=== PATIENT | male | born 1995 | race Caucasian/White ===

== ENCOUNTER 2021-01-08 22:53 | Inpatient (IN) | payer OTHER, SELFPAY ==
[~2021-01-08] VITALS: Ht 182.9 cm; Wt 80.8 kg
--- NOTE | 2021-01-08 23:56 | NUR ---
ARRIVAL: PT ARRIVED TO ICU 8 VIA EMS. REPORT RECEIVED FROM [facility]. PT TRANSFERRED TO ICU BED X4 ASSIST. PT IS ON NC @ 3.5LPM. ALL VSS AND WNL. PT IS ALERT AND ORIENTED. COVID ISOLATION PRECAUTIONS EXPLAINED TO PT WITH UNDERSTANDING. CALL LIGHT AND TABLE WITHIN REACH. BED LOCKED AND IN LOW POSITION, WITH SIDE RAILS UP X2. PT DENIES ANY NEEDS. WILL CONTINUE TO MONITOR.
[2021-01-09] VITALS (71 sets, daily range): BP systolic 106–164; BP diastolic 54–100
--- NOTE | 2021-01-09 00:37 | PCM.HP ---
History of Present Illness Hx of Present Illness 25-year-old male with no significant past medical history who has had coronavirus for approximately 12 days now was treated with a course of doxycycline outpatient and steroids however his oxygen saturations have worsened today and he is now requiring oxygen he did not get vaccinated Review of Systems Constitutional: Fever, Chills Eyes: No: Pain, Vision change, Conjunctivae inflammation, Eyelid inflammation, Other, Redness ENT: No: Ear pain, Ear discharge, Nose pain, Nose discharge, Nose congestion, Mouth pain, Mouth swelling, Throat pain, Throat swelling, Other Respiratory: Cough Cardiovascular: No: Chest Pain, Palpitations, Orthopnea, Paroxysmal Noc. Dyspnea, Edema, Lt Headedness, Other Gastrointestinal: No: Nausea, Vomiting, Abdominal Pain, Diarrhea, Constipation, Melena, Hematochezia, Other Genitourinary: No Dysuria, No Frequency, No Incontinence, No Hematuria, No Retention, No Other Musculoskeletal: No: other, neck pain, shoulder pain, arm pain, back pain, hand pain, leg pain, foot pain Skin: No: Rash, Lesions, Jaundice, Bruising, Other Neurological: No: Weakness, Numbness, Incoordination, Change in speech, Confusion, Seizures, Other Allergies: Coded Allergies: azithromycin (Verified Allergy, Unknown, 01/09/21) codeine (Verified Allergy, Unknown, 01/09/21) moxifloxacin (Verified Allergy, Unknown, 01/09/21) VTE VTE Risk Score VTE Risk: Score 0-1 = Low Risk (Aggressive mobilization; early ambulation; no VTE prophylaxis required) Score 2: Moderate Risk (Intermittent/Pneumatic Compression Device OR Lovenox/Heparin/Coumadin) Score 3-4: High Risk (Intermittent/Pneumatic Compression Device AND Lovenox/Heparin/Coumadin) Score > or =5: Highest Risk (Intermittent/Pneumatic Compression Device AND Lovenox/Heparin/Coumadin) Antico:Hep/LMWH/Coum/Xarelto: Yes Mechanical device ordered: Yes Exam General Appearance: Alert, Oriented X3, Cooperative HEENT: Atraumatic, PERRLA, EOMI, Mucous membr. moist/pink Respiratory: Clear to auscultation, Normal air movement Cardiovascular: Regular rate Abdominal: Normal bowel sounds Extremities: No clubbing, No cyanosis Skin: No rash, No breakdown Neuro: Normal gait, Normal speech, Strength at 5/5 X4 ext, Normal tone Psych/Mental Status: Mood NL Assessment/Plan Assessment/Plan Assessment/Plan 25-year-old male with COVID-19 infection now requiring oxygen was treated outpatient with doxycycline and steroids but developed worsening symptoms and presented to the ER yesterday has not vaccinated. Was found to have a elevated D-dimer but negative CT angiogram of the chest with symptoms consistent with Covid infection transferred from [facility] for higher level of care COVID-19 pneumonia: Completed course of antibiotics outpatient, will treat with remdesivir, dexamethasone, incentive spirometry, zinc, melatonin, Pepcid and oxygen as needed. Overall patient has a good prognosis given age and lack of risk factors overall we will anticoagulate with enoxaparin due to elevated D-dimer Prophylaxis: Pepcid, SCDs, enoxaparin Patient is full code JACLYN AVINA MD Jan 09, 2021 00:36
[2021-01-09] MEDS ORDERED: REMDESIVIR (EUA) 200 MG in NS 100ML 100 ML IV STA (00:44)
[2021-01-09] MEDS: PEPCID IV SCH ×3 (01:00→22:00)
[2021-01-09] MEDS ORDERED: TESSALON PERLE PO PRN (01:00)
[2021-01-09] MEDS ORDERED: TYLENOL PO PRN (01:00)
[2021-01-09] MEDS ORDERED: ZOFRAN IV PRN (01:00)
[2021-01-09] MEDS ORDERED: MELATONIN PO PRN (01:00)
[2021-01-09] MEDS: ROCEPHIN 1,000 MG in NS 100ML 100 ML IV SCH (01:00)
[2021-01-09] MEDS ORDERED: PEPCID ONE (01:05)
[2021-01-09] MEDS ORDERED: ROCEPHIN ONE (01:05)
[2021-01-09] MEDS ORDERED: NS 100ML 100 ML IV ONE (01:06)
[2021-01-09] MEDS ORDERED: NS 500ML 500 ML IV ONE (01:09)
[2021-01-09 05:14] LABS: BASOPHIL % 0.5 % (0.0-0.2); EOSINOPHIL % 0.2 % (0.0-5.0); LYMPHOCYTES # 0.53 10^3/uL1 (1.0-4.8); MEAN CORP HGB 29.2 pg (26-34); MONOCYTES # 0.2 10^3/uL (0.3-0.8); MONOCYTES % 5.4 % (5.0-12.0); NEUTROPHIL # 3.6 10^3/uL (1.8-7.7); NEUTROPHILS % 81.9 % (41.0-85.0); PLATELET COUNT 188 10^3/uL (150-400)
[2021-01-09 05:43] LABS: CALCIUM 7.7 mg/dL (8.4-10.5); CARBON DIOXIDE 25.5 mmol/L (20.0-32)
--- NOTE | 2021-01-09 06:30 | NUR ---
COVID TEST WAS DONE IN [place] PER PT REPORT. "I DON'T KNOW WHERE".
--- NOTE | 2021-01-09 06:50 | NUR ---
REPORT TO ONCOMING SHIFT. PT CARE RELINQUISHED.
[2021-01-09] MEDS: ZINC SULFATE PO SCH (09:00)
[2021-01-09] MEDS: LOVENOX SQ SCH ×2 (09:00→22:00)
[2021-01-09] MEDS: VITAMIN C PO SCH ×2 (09:00→22:00)
--- NOTE | 2021-01-09 20:25 | NUR ---
TRANSFER PT WAS MOVED TO [facility] #[id number]. VITALS PRIOR TO TRANSFER: HR 93, BP 124/73, O2 93% AND RR 8-12. PT TRANSFERRED VIA WHEEL CHAIR, A&OX3. REPORT GIVEN TO BERNADETTE ROQUE. RELINQUISHED CARE OF PT AT THIS TIME.
--- NOTE | 2021-01-09 20:51 | DIREP ---
PROCEDURE:CHEST 1 VIEW COMPARISON:[facility], CT, CTA PE CHEST W/O PELVIS- LEGS, 01/08/2021, 09:23 PM. [facility], CR, XRAY CHEST SINGLE VW, 01/08/2021, 08:26 PM. INDICATIONS:Pneumonia FINDINGS: LUNGS/PLEURA:Shallow inspiratory excursion. Given differences in technique, the multifocal bilateral infiltrates appear unchanged VASCULATURE:Normal. Unremarkable pulmonary vasculature. CARDIAC:Normal. No cardiac silhouette abnormality or cardiomegaly. MEDIASTINUM:Normal. No visible mass or adenopathy. BONES:Normal. No fracture or visible bony lesion. OTHER:Negative. CONCLUSION:Stable bilateral pneumonia Dictated by: Dori Cuevas M.D. on 01/09/2021 at 08:46 PM
[2021-01-09] MEDS: REMDESIVIR (EUA) 100 MG in NS 100ML 100 ML IV SCH (22:00)
--- NOTE | 2021-01-09 22:00 | NUR ---
PT REFUSED BATH DUE TO THIS NURSES CONCERNS WITH PT HYGIENE, OFFERED PT BED BATH OR SHOWER, PT REFUSED..
[2021-01-09] MEDS ORDERED: NS 250ML 250 ML ONE (22:56)
[2021-01-10 00:58] VITALS: BP 122/77
[2021-01-10] MEDS: ROCEPHIN 1,000 MG in NS 100ML 100 ML IV SCH (01:13)
[2021-01-10 04:25] VITALS: BP 118/78
[2021-01-10] MEDS: VITAMIN C PO SCH ×2 (08:57→20:16)
[2021-01-10] MEDS: ZINC SULFATE PO SCH (08:58)
[2021-01-10] MEDS: PEPCID IV SCH ×2 (08:58→20:15)
[2021-01-10] MEDS: LOVENOX SQ SCH ×2 (08:58→20:16)
[2021-01-10 10:05] VITALS: BP 137/99
--- NOTE | 2021-01-10 12:23 | PRM.PN ---
Subjective Subjective Date: Jan 10, 2021 Time: 12:23 Subjective Patient feels about the same today as yesterday he is using his incentive spirometer VTE VTE Risk Total Score: 5 VTE Risk Score VTE Risk: Score 0-1 = Low Risk (Aggressive mobilization; early ambulation; no VTE prophylaxis required) Score 2: Moderate Risk (Intermittent/Pneumatic Compression Device OR Lovenox/Heparin/Coumadin) Score 3-4: High Risk (Intermittent/Pneumatic Compression Device AND Lovenox/Heparin/Coumadin) Score > or =5: Highest Risk (Intermittent/Pneumatic Compression Device AND Lovenox/Heparin/Coumadin) Antico:Hep/LMWH/Coum/Xarelto: Yes Mechanical device ordered: Yes Review of Systems Constitutional: Fever, Chills Eyes: No: Pain, Vision change, Conjunctivae inflammation, Eyelid inflammation, Other, Redness ENT: No: Ear pain, Ear discharge, Nose pain, Nose discharge, Nose congestion, Mouth pain, Mouth swelling, Throat pain, Throat swelling, Other Respiratory: Cough, Shortness of breath, SOB with excertion; No: Wheezing Cardiovascular: No: Chest Pain, Palpitations, Orthopnea, Paroxysmal Noc. Dyspnea, Edema, Lt Headedness, Other Gastrointestinal: No: Nausea, Vomiting, Abdominal Pain, Diarrhea, Constipation, Melena, Hematochezia, Other Genitourinary: No Dysuria, No Frequency, No Incontinence, No Hematuria, No Retention, No Other Musculoskeletal: No: other, neck pain, shoulder pain, arm pain, back pain, hand pain, leg pain, foot pain Skin: No: Rash, Lesions, Jaundice, Bruising, Other Neurological: No: Weakness, Numbness, Incoordination, Change in speech, Confusion, Seizures, Other Allergies: Coded Allergies: azithromycin (Verified Allergy, Unknown, 01/09/21) codeine (Verified Allergy, Unknown, 01/09/21) moxifloxacin (Verified Allergy, Unknown, 01/09/21) Objective Vitals and I/O Vital Sign - Last 24 Hours 01/10/21 01/10/21 10:05 11:22 Temp 97.9 Pulse 79 Resp 16 B/P (MAP) 137/99 (112) Pulse Ox 92 O2 Delivery Nasal Canula Nasal Cannula O2 Flow Rate 3.50 3.50 General: Alert, Oriented X3, Cooperative HEENT: Atraumatic, PERRLA, EOMI, Mucous membr. moist/pink Lungs: Clear to auscultation, Normal air movement Heart: Regular rate Abdomen: Normal bowel sounds Extremities: No clubbing, No cyanosis Neuro: Normal gait, Normal speech, Strength at 5/5 X4 ext, Normal tone Psych/Mental Status: Mood NL All Results(Lab/Rad) Current Medications Medications (Trade) Dose Ordered Sig/Cesar Route PRN Reason Start Time Stop Time Status Last Admin Dose Admin Enoxaparin Sodium (Lovenox) 40 mg BID SQ 01/09/21 09:00 02/08/21 08:59 01/10/21 08:58 Remdesivir 200 mg/ Sodium Chloride 140 ml @ 120.69 mls/ hr OT STAT IV 01/09/21 00:44 01/09/21 12:50 DC 01/09/21 00:44 Ceftriaxone Sodium 1000 mg/ Sodium Chloride 100 ml @ 100 mls/hr Q24HRS IV 01/09/21 01:00 02/08/21 00:59 01/10/21 01:13 Acetaminophen (Tylenol) 500 mg Q6H PRN PO PAIN 1 - 3 01/09/21 01:00 02/08/21 00:59 Ondansetron HCl (Zofran) 4 mg Q4H PRN IV NAUSEA / VOMITING 01/09/21 01:00 02/08/21 00:59 Melatonin (Melatonin) 3 mg HS PRN PO INSOMNIA 01/09/21 01:00 02/08/21 00:59 01/09/21 01:37 Famotidine (Pepcid) 20 mg BID IV 01/09/21 01:00 02/08/21 00:59 01/10/21 08:58 Zinc Sulfate (Zinc Sulfate) 220 mg DAILY PO 01/09/21 09:00 02/08/21 08:59 01/10/21 08:58 Ascorbic Acid (Vitamin C) 500 mg BID PO 01/09/21 09:00 02/08/21 08:59 01/10/21 08:57 Remdesivir 100 mg/ Sodium Chloride 120 ml @ 111.111 mls/hr Q24HRS IV 01/09/21 21:00 01/13/21 22:05 01/09/21 22:00 Benzonatate (Tessalon Perle) 100 mg TID PRN PO COUGH 01/09/21 01:00 02/08/21 00:59 01/09/21 01:37 Ceftriaxone Sodium (Rocephin) 1,000 mg STK-MED ONCE .ROUTE 01/09/21 01:05 01/09/21 01:06 DC Famotidine (Pepcid) 20 mg STK-MED ONCE .ROUTE 01/09/21 01:05 01/09/21 01:06 DC Sodium Chloride 100 ml @ ud STK-MED ONCE IV 01/09/21 01:06 01/09/21 01:06 DC Sodium Chloride 500 ml @ ud STK-MED ONCE IV 01/09/21 01:09 01/09/21 01:10 DC Sodium Chloride 250 ml @ ud STK-MED ONCE .ROUTE 01/09/21 22:56 01/09/21 22:56 DC Course Sepsis Screening Results: Posi: NEGATIVE Sepsis Qualifier/Stage: SEPSIS RISK Vitals & review Data Vital Sign - Last 24 Hours 01/10/21 01/10/21 10:05 11:22 Temp 97.9 Pulse 79 Resp 16 B/P (MAP) 137/99 (112) Pulse Ox 92 O2 Delivery Nasal Canula Nasal Cannula O2 Flow Rate 3.50 3.50 Laboratory Tests Test 01/09/21 05:00 White Blood Count 4.4 10^3/uL Red Blood Count 5.11 10^6/uL Hemoglobin 14.9 g/dL Hematocrit 42.8 % Mean Corpuscular Volume 83.8 fL Mean Corpuscular Hemoglobin 29.2 pg Mean Corpuscular Hemoglobin Concent 34.8 g/dL Red Cell Distribution Width 12.0 % Platelet Count 188 10^3/uL Mean Platelet Volume 8.6 fL Neutrophils (%) (Auto) 81.9 % Lymphocytes (%) (Auto) 12.0 % Monocytes (%) (Auto) 5.4 % Neutrophils # (Auto) 3.6 10^3/uL Lymphocytes # (Auto) 0.53 10^3/uL1 Monocytes # (Auto) 0.2 10^3/uL Absolute Immature Granulocyte (auto 0.03 10^3 u/L Absolute Eosinophils (auto) 0.0 10^3/uL Immature Granulocytes % 0.70 % Eosinophils % 0.2 % Basophils % 0.5 % Basophils # 0.0 10^3/uL Prothrombin Time 11.6 SEC Prothrombin Time INR (Non-Therap) 1.1 Activated Partial Thromboplast Time 24.8 SEC D-Dimer 2.39 mg/L Sodium Level 138 mmol/L Potassium Level 3.7 mmol/L Chloride Level 100.0 mmol/L Carbon Dioxide Level 25.5 mmol/L Anion Gap 16.2 Blood Urea Nitrogen 14 mg/dL Creatinine 0.81 mg/dL Estimated GFR () 138.3 Est GFR (CKD-EPI)(Non-Afr [place]) 114.3 BUN/Creatinine Ratio 17.0 Glucose Level 99 mg/dL Calcium Level 7.7 mg/dL Total Bilirubin 0.8 mg/dL Aspartate Amino Transf (AST/SGOT) 186 U/L Alanine Aminotransferase (ALT/SGPT) 315 U/L Alkaline Phosphatase 42 U/L Total Protein 6.1 g/dL Albumin 3.0 g/dL Globulin 3.1 Albumin/Globulin Ratio 0.967 Procalcitonin 0.14 ng/mL Current Medications Medications (Trade) Dose Ordered Sig/Cesar PRN Reason Start Time Stop Time Status Last Admin Acetaminophen (Tylenol) 500 mg Q6H PRN PAIN 1 - 3 01/09/21 01:00 02/08/21 00:59 Ascorbic Acid (Vitamin C) 500 mg BID 01/09/21 09:00 02/08/21 08:59 01/10/21 08:57 Benzonatate (Tessalon Perle) 100 mg TID PRN COUGH 01/09/21 01:00 02/08/21 00:59 01/09/21 01:37 Ceftriaxone Sodium 1000 mg/ Sodium Chloride 100 ml @ 100 mls/hr Q24HRS 01/09/21 01:00 02/08/21 00:59 01/10/21 01:13 Enoxaparin Sodium (Lovenox) 40 mg BID 01/09/21 09:00 02/08/21 08:59 01/10/21 08:58 Famotidine (Pepcid) 20 mg BID 01/09/21 01:00 02/08/21 00:59 01/10/21 08:58 Melatonin (Melatonin) 3 mg HS PRN INSOMNIA 01/09/21 01:00 02/08/21 00:59 01/09/21 01:37 Ondansetron HCl (Zofran) 4 mg Q4H PRN NAUSEA / VOMITING 01/09/21 01:00 02/08/21 00:59 Remdesivir 100 mg/ Sodium Chloride 120 ml @ 111.111 mls/hr Q24HRS 01/09/21 21:00 01/13/21 22:05 01/09/21 22:00 Zinc Sulfate (Zinc Sulfate) 220 mg DAILY 01/09/21 09:00 02/08/21 08:59 01/10/21 08:58 LEVEL 1 SEPSIS INFECTION CRITE: Cough/Shortness of Breath, Flu-Pneumonia LEVEL 2-SIRS (LIST ALL THAT AP: RR>20/min, HR>90/min Cardiovascular Evidence: Not Assessed or None Hematologic Evidence: None/Not assessed Hepatic Evidence: None/Not assessed Metabolic Evidence: None/Not assessed Neurological Evidence: None/Not assessed Respiratory Evidence: Need for O2 to keep>90%, O2 SAT<90room air Renal Evidence: None/Not assessed O2 Sat by Pulse Oximetry: 92 Oxygen Flow Rate: 3.50 Assessment/Plan Assessment/Plan Assessment/Plan 25-year-old male with COVID-19 infection now requiring oxygen was treated outpatient with doxycycline and steroids but developed worsening symptoms and presented to the ER yesterday has not vaccinated. Was found to have a elevated D-dimer but negative CT angiogram of the chest with symptoms consistent with Covid infection transferred from [facility] for higher level of care. CXR showing stable bilateral pneumonia today with bilateral multifocal infiltrates COVID-19 pneumonia: Completed course of doxycycline outpatient, will treat with ceftriaxone, remdesivir, dexamethasone, incentive spirometry, zinc, melatonin, Pepcid and oxygen as needed. Overall patient has a good prognosis given age and lack of risk factors overall we will anticoagulate with enoxaparin due to elevated D- dimer (can't rule out secondary bacterial infection with typical organism at this time). IS Prophylaxis: Pepcid, SCDs, enoxaparin Patient is full code JACLYN AVINA MD Jan 10, 2021 12:23
[2021-01-10 13:11] VITALS: BP 143/95
[2021-01-10 18:07] VITALS: BP 124/87
[2021-01-10 20:09] VITALS: BP 118/78
[2021-01-10] MEDS: REMDESIVIR (EUA) 100 MG in NS 100ML 100 ML IV SCH (20:15)
[2021-01-11] VITALS (7 sets, daily range): BP systolic 106–120; BP diastolic 62–81
[2021-01-11] MEDS: ROCEPHIN 1,000 MG in NS 100ML 100 ML IV SCH (00:45)
[2021-01-11 06:12] LABS: BASOPHIL % 0.3 % (0.0-0.2); EOSINOPHIL # 0.1 10^3/uL (0.0-0.2); EOSINOPHIL % 1.9 % (0.0-5.0); LYMPHOCYTES # 0.61 10^3/uL1 (1.0-4.8); LYMPHOCYTES % 16.4 % (24.0-44.0); MEAN CORP HGB 29.3 pg (26-34); MONOCYTES # 0.6 10^3/uL (0.3-0.8); MONOCYTES % 17.2 % (5.0-12.0); NEUTROPHIL # 2.4 10^3/uL (1.8-7.7); NEUTROPHILS % 64.2 % (41.0-85.0); PLATELET COUNT 249 10^3/uL (150-400); RED CELL DISTRIBUTION WIDTH 12.3 % (11.5-14.5)
[2021-01-11 06:22] LABS: CALCIUM 7.7 mg/dL (8.4-10.5); CARBON DIOXIDE 23.3 mmol/L (20.0-32)
[2021-01-11 07:23] LABS: LYMPHOCYTE 11 % (25-36); MONOCYTE 14 % (3-9); SEGMENTED NEUTROPHILS 75 % (31-76)
[2021-01-11] MEDS: ZINC SULFATE PO SCH (09:27)
[2021-01-11] MEDS: VITAMIN C PO SCH ×2 (09:27→21:49)
[2021-01-11] MEDS: LOVENOX SQ SCH ×2 (09:28→21:50)
[2021-01-11] MEDS: PEPCID IV SCH ×2 (09:28→21:49)
--- NOTE | 2021-01-11 10:44 | PRM.PN ---
Subjective Subjective Date: Jan 11, 2021 Time: 08:00 Subjective Patient reports that shortness of breath is improved, sitting up in chair, ongoing productive cough VTE VTE Risk Total Score: 5 VTE Risk Score VTE Risk: Score 0-1 = Low Risk (Aggressive mobilization; early ambulation; no VTE prophylaxis required) Score 2: Moderate Risk (Intermittent/Pneumatic Compression Device OR Lovenox/Heparin/Coumadin) Score 3-4: High Risk (Intermittent/Pneumatic Compression Device AND Lovenox/Heparin/Coumadin) Score > or =5: Highest Risk (Intermittent/Pneumatic Compression Device AND Lovenox/Heparin/Coumadin) Antico:Hep/LMWH/Coum/Xarelto: Yes Mechanical device ordered: Yes Review of Systems Constitutional: No: Fever, Chills Eyes: No: Pain, Vision change, Conjunctivae inflammation, Eyelid inflammation, Other, Redness ENT: No: Ear pain, Ear discharge, Nose pain, Nose discharge, Nose congestion, Mouth pain, Mouth swelling, Throat pain, Throat swelling, Other Respiratory: Cough, SOB with excertion; No: Shortness of breath, Wheezing Cardiovascular: No: Chest Pain, Palpitations, Orthopnea, Paroxysmal Noc. Dyspnea, Edema, Lt Headedness, Other Gastrointestinal: No: Nausea, Vomiting, Abdominal Pain, Diarrhea, Constipation, Melena, Hematochezia, Other Genitourinary: No Dysuria, No Frequency, No Incontinence, No Hematuria, No Retention, No Other Musculoskeletal: No: other, neck pain, shoulder pain, arm pain, back pain, hand pain, leg pain, foot pain Skin: No: Rash, Lesions, Jaundice, Bruising, Other Neurological: No: Weakness, Numbness, Incoordination, Change in speech, Confusion, Seizures, Other Allergies: Coded Allergies: azithromycin (Verified Allergy, Unknown, 01/09/21) codeine (Verified Allergy, Unknown, 01/09/21) moxifloxacin (Verified Allergy, Unknown, 01/09/21) Objective Vitals and I/O Vital Sign - Last 24 Hours 01/11/21 01/11/21 01/11/21 01/11/21 08:11 09:15 09:16 10:19 Temp 98.2 Pulse 78 82 Resp 18 20 20 B/P (MAP) 106/62 (77) Pulse Ox 93 94 94 O2 Delivery Nasal Canula Nasal Cannula Nasal Cannula O2 Flow Rate 2.00 3.50 3.50 Intake and Output 01/11/21 07:00 Intake Total 220 ml Balance 220 ml General: Alert, Oriented X3, Cooperative HEENT: Atraumatic, PERRLA, EOMI, Mucous membr. moist/pink Lungs: Clear to auscultation, Normal air movement Heart: Regular rate Abdomen: Normal bowel sounds Extremities: No clubbing, No cyanosis Neuro: Normal gait, Normal speech, Strength at 5/5 X4 ext, Normal tone Psych/Mental Status: Mood NL All Results(Lab/Rad) Current Medications Medications (Trade) Dose Ordered Sig/Cesar Route PRN Reason Start Time Stop Time Status Last Admin Dose Admin Enoxaparin Sodium (Lovenox) 40 mg BID SQ 01/09/21 09:00 02/08/21 08:59 01/10/21 08:58 Remdesivir 200 mg/ Sodium Chloride 140 ml @ 120.69 mls/ hr OT STAT IV 01/09/21 00:44 01/09/21 12:50 DC 01/09/21 00:44 Ceftriaxone Sodium 1000 mg/ Sodium Chloride 100 ml @ 100 mls/hr Q24HRS IV 01/09/21 01:00 02/08/21 00:59 01/10/21 01:13 Acetaminophen (Tylenol) 500 mg Q6H PRN PO PAIN 1 - 3 01/09/21 01:00 02/08/21 00:59 Ondansetron HCl (Zofran) 4 mg Q4H PRN IV NAUSEA / VOMITING 01/09/21 01:00 02/08/21 00:59 Melatonin (Melatonin) 3 mg HS PRN PO INSOMNIA 01/09/21 01:00 02/08/21 00:59 01/09/21 01:37 Famotidine (Pepcid) 20 mg BID IV 01/09/21 01:00 02/08/21 00:59 01/10/21 08:58 Zinc Sulfate (Zinc Sulfate) 220 mg DAILY PO 01/09/21 09:00 02/08/21 08:59 01/10/21 08:58 Ascorbic Acid (Vitamin C) 500 mg BID PO 01/09/21 09:00 02/08/21 08:59 01/10/21 08:57 Remdesivir 100 mg/ Sodium Chloride 120 ml @ 111.111 mls/hr Q24HRS IV 01/09/21 21:00 01/13/21 22:05 01/09/21 22:00 Benzonatate (Tessalon Perle) 100 mg TID PRN PO COUGH 01/09/21 01:00 02/08/21 00:59 01/09/21 01:37 Ceftriaxone Sodium (Rocephin) 1,000 mg STK-MED ONCE .ROUTE 01/09/21 01:05 01/09/21 01:06 DC Famotidine (Pepcid) 20 mg STK-MED ONCE .ROUTE 01/09/21 01:05 01/09/21 01:06 DC Sodium Chloride 100 ml @ ud STK-MED ONCE IV 01/09/21 01:06 01/09/21 01:06 DC Sodium Chloride 500 ml @ ud STK-MED ONCE IV 01/09/21 01:09 01/09/21 01:10 DC Sodium Chloride 250 ml @ ud STK-MED ONCE .ROUTE 01/09/21 22:56 01/09/21 22:56 DC Course Sepsis Screening Results: Posi: POSITIVE Sepsis Qualifier/Stage: SEPSIS RISK Vitals & review Data Vital Sign - Last 24 Hours 01/10/21 01/10/21 10:05 11:22 Temp 97.9 Pulse 79 Resp 16 B/P (MAP) 137/99 (112) Pulse Ox 92 O2 Delivery Nasal Canula Nasal Cannula O2 Flow Rate 3.50 3.50 Laboratory Tests Test 01/09/21 05:00 White Blood Count 4.4 10^3/uL Red Blood Count 5.11 10^6/uL Hemoglobin 14.9 g/dL Hematocrit 42.8 % Mean Corpuscular Volume 83.8 fL Mean Corpuscular Hemoglobin 29.2 pg Mean Corpuscular Hemoglobin Concent 34.8 g/dL Red Cell Distribution Width 12.0 % Platelet Count 188 10^3/uL Mean Platelet Volume 8.6 fL Neutrophils (%) (Auto) 81.9 % Lymphocytes (%) (Auto) 12.0 % Monocytes (%) (Auto) 5.4 % Neutrophils # (Auto) 3.6 10^3/uL Lymphocytes # (Auto) 0.53 10^3/uL1 Monocytes # (Auto) 0.2 10^3/uL Absolute Immature Granulocyte (auto 0.03 10^3 u/L Absolute Eosinophils (auto) 0.0 10^3/uL Immature Granulocytes % 0.70 % Eosinophils % 0.2 % Basophils % 0.5 % Basophils # 0.0 10^3/uL Prothrombin Time 11.6 SEC Prothrombin Time INR (Non-Therap) 1.1 Activated Partial Thromboplast Time 24.8 SEC D-Dimer 2.39 mg/L Sodium Level 138 mmol/L Potassium Level 3.7 mmol/L Chloride Level 100.0 mmol/L Carbon Dioxide Level 25.5 mmol/L Anion Gap 16.2 Blood Urea Nitrogen 14 mg/dL Creatinine 0.81 mg/dL Estimated GFR () 138.3 Est GFR (CKD-EPI)(Non-Afr [place]) 114.3 BUN/Creatinine Ratio 17.0 Glucose Level 99 mg/dL Calcium Level 7.7 mg/dL Total Bilirubin 0.8 mg/dL Aspartate Amino Transf (AST/SGOT) 186 U/L Alanine Aminotransferase (ALT/SGPT) 315 U/L Alkaline Phosphatase 42 U/L Total Protein 6.1 g/dL Albumin 3.0 g/dL Globulin 3.1 Albumin/Globulin Ratio 0.967 Procalcitonin 0.14 ng/mL Current Medications Medications (Trade) Dose Ordered Sig/Cesar PRN Reason Start Time Stop Time Status Last Admin Acetaminophen (Tylenol) 500 mg Q6H PRN PAIN 1 - 3 01/09/21 01:00 02/08/21 00:59 Ascorbic Acid (Vitamin C) 500 mg BID 01/09/21 09:00 02/08/21 08:59 01/10/21 08:57 Benzonatate (Tessalon Perle) 100 mg TID PRN COUGH 01/09/21 01:00 02/08/21 00:59 01/09/21 01:37 Ceftriaxone Sodium 1000 mg/ Sodium Chloride 100 ml @ 100 mls/hr Q24HRS 01/09/21 01:00 02/08/21 00:59 01/10/21 01:13 Enoxaparin Sodium (Lovenox) 40 mg BID 01/09/21 09:00 02/08/21 08:59 01/10/21 08:58 Famotidine (Pepcid) 20 mg BID 01/09/21 01:00 02/08/21 00:59 01/10/21 08:58 Melatonin (Melatonin) 3 mg HS PRN INSOMNIA 01/09/21 01:00 02/08/21 00:59 01/09/21 01:37 Ondansetron HCl (Zofran) 4 mg Q4H PRN NAUSEA / VOMITING 01/09/21 01:00 02/08/21 00:59 Remdesivir 100 mg/ Sodium Chloride 120 ml @ 111.111 mls/hr Q24HRS 01/09/21 21:00 01/13/21 22:05 01/09/21 22:00 Zinc Sulfate (Zinc Sulfate) 220 mg DAILY 01/09/21 09:00 02/08/21 08:59 01/10/21 08:58 LEVEL 1 SEPSIS INFECTION CRITE: ABX Therapy, Cough/Shortness of Breath, Flu- Pneumonia LEVEL 2-SIRS (LIST ALL THAT AP: HR>90/min Cardiovascular Evidence: Not Assessed or None Hematologic Evidence: None/Not assessed Hepatic Evidence: Elevated AST(SGOT)>72, Elevated ALT(SGPT)>90 Metabolic Evidence: None/Not assessed Neurological Evidence: None/Not assessed Respiratory Evidence: Need for O2 to keep>90%, O2 SAT<90room air Renal Evidence: None/Not assessed O2 Sat by Pulse Oximetry: 94 Oxygen Flow Rate: 3.50 Assessment/Plan Assessment/Plan Problems: (1) Acute hypoxemic respiratory failure due to COVID-19 Status: Acute Assessment & Plan: still requiring 3 L nasal cannula, treatment for COVID-19 pneumonia as below ICD Code: U07.1 - COVID-19; J96.01 - Acute respiratory failure with hypoxia SNOMED: 459603992 (2) Pneumonia due to COVID-19 virus Status: Acute Assessment & Plan: c/w steroids and remesivir for now ICD Code: U07.1 - COVID-19; J12.82 - Pneumonia due to coronavirus disease 2019 SNOMED: [id number] BOLIVAR FONTAINE MD Jan 11, 2021 10:44
--- NOTE | 2021-01-11 17:09 | DIET.OP ---
Nutrition Asmt/Malnutrit 2-17 Actual Date of Review: Jan 11, 2021 Nutritional Screening: Malnutr/Diet Consult (general) Diagnosis: covid pneumonia Pertinent Medical Hx/Surgical: none Subjective Information: SOB improving, Wt down 14# from yesterday, likely error, will continue to monitor Current Diet Order/Nutrition S: regular Pertinent Meds Current Medications Medications (Trade) Dose Ordered Sig/Cesar PRN Reason Start Time Stop Time Status Last Admin Acetaminophen (Tylenol) 500 mg Q6H PRN PAIN 1 - 3 01/09/21 01:00 02/08/21 00:59 Ascorbic Acid (Vitamin C) 500 mg BID 01/09/21 09:00 02/08/21 08:59 01/11/21 09:27 Benzonatate (Tessalon Perle) 100 mg TID PRN COUGH 01/09/21 01:00 02/08/21 00:59 01/09/21 01:37 Ceftriaxone Sodium 1000 mg/ Sodium Chloride 100 ml @ 100 mls/hr Q24HRS 01/09/21 01:00 02/08/21 00:59 01/11/21 00:45 Enoxaparin Sodium (Lovenox) 40 mg BID 01/09/21 09:00 02/08/21 08:59 01/11/21 09:28 Famotidine (Pepcid) 20 mg BID 01/09/21 01:00 02/08/21 00:59 01/11/21 09:28 Melatonin (Melatonin) 3 mg HS PRN INSOMNIA 01/09/21 01:00 02/08/21 00:59 01/09/21 01:37 Ondansetron HCl (Zofran) 4 mg Q4H PRN NAUSEA / VOMITING 01/09/21 01:00 02/08/21 00:59 Remdesivir 100 mg/ Sodium Chloride 120 ml @ 111.111 mls/hr Q24HRS 01/09/21 21:00 01/13/21 22:05 01/10/21 20:15 Zinc Sulfate (Zinc Sulfate) 220 mg DAILY 01/09/21 09:00 02/08/21 08:59 01/11/21 09:27 Pertinent Labs Laboratory Tests Test 01/11/21 05:35 01/11/21 06:33 White Blood Count 3.7 10^3/uL Red Blood Count 5.15 10^6/uL Hemoglobin 15.1 g/dL Hematocrit 44.3 % Mean Corpuscular Volume 86.0 fL Mean Corpuscular Hemoglobin 29.3 pg Mean Corpuscular Hemoglobin Concent 34.1 g/dL Red Cell Distribution Width 12.3 % Platelet Count 249 10^3/uL Mean Platelet Volume 8.4 fL Neutrophils (%) (Auto) 64.2 % Lymphocytes (%) (Auto) 16.4 % Monocytes (%) (Auto) 17.2 % Neutrophils # (Auto) 2.4 10^3/uL Lymphocytes # (Auto) 0.61 10^3/uL1 Monocytes # (Auto) 0.6 10^3/uL Absolute Immature Granulocyte (auto 0.06 10^3 u/L Absolute Eosinophils (auto) 0.1 10^3/uL Immature Granulocytes % 1.60 % Eosinophils % 1.9 % Basophils % 0.3 % Basophils # 0.0 10^3/uL Sodium Level 137 mmol/L Potassium Level 4.6 mmol/L Chloride Level 103.0 mmol/L Carbon Dioxide Level 23.3 mmol/L Anion Gap 15.3 Blood Urea Nitrogen 14 mg/dL Creatinine 0.81 mg/dL Estimated GFR () 138.3 Est GFR (CKD-EPI)(Non-Afr [place]) 114.3 BUN/Creatinine Ratio 17.0 Glucose Level 84 mg/dL Calcium Level 7.7 mg/dL Total Bilirubin 0.7 mg/dL Aspartate Amino Transf (AST/SGOT) 127 U/L Alanine Aminotransferase (ALT/SGPT) 443 U/L Alkaline Phosphatase 35 U/L Total Protein 6.3 g/dL Albumin 3.0 g/dL Globulin 3.3 Albumin/Globulin Ratio 0.909 Segmented Neutrophils 75 % Lymphocytes 11 % Monocytes 14 % Platelet Estimate ADEQUATE Platelet Morphology NORMAL Height (Feet): 6 Height (Inches): 0 Current Weight: 196 %IBW: 110 Weight Status: Overweight Food Allergies: No Cultural/Ethnic/Muslim Alia: none known Usual Diet at Home: regular Skin Integrity/Comment: No Current %PO: average of 66% of meals BEE in Kcals: Use Current Weight Calories/Kcals/Kg: MSJ *1.1-1.3 Kcals Calculated: 4355-9993 kcal Protein: Use Current Weight Protein g/k.8-1.1 g/kg Protein Calculated: 71-98g Fluid: ml: 2090 ml Nutritional Problem: Nutr. Problems Present Problems: Inadequate oral intake Etiology: reduced appetite/covid 19 symptoms Signs/Symptoms: average of 66% of meals meeting approximately 62% of estimated daily nutrition needs. RD Comments: 1. Continue regular diet. Encourage po intake at meals and offer snacks. 2. RD to monitor need for oral supplement 3. Monitor wt Expected Outcomes Goal of 80-100% po intake of meals the next 3-5 days to meet at least 75% of nu tritional needs. Discharge on regular diet Malnutrtion/Nutrition Risk Edu: No MD Notificiation Needed?: No Nilda Billy Jan 11, 2021 17:09
[2021-01-11] MEDS: REMDESIVIR (EUA) 100 MG in NS 100ML 100 ML IV SCH (21:49)
[2021-01-11] MEDS ORDERED: NS 250ML 250 ML ONE (23:57)
[2021-01-12] MEDS: ROCEPHIN 1,000 MG in NS 100ML 100 ML IV SCH (00:19)
[2021-01-12 03:49] VITALS: BP 110/71
[2021-01-12 05:06] LABS: BASOPHIL % 0.6 % (0.0-0.2); EOSINOPHIL # 0.1 10^3/uL (0.0-0.2); EOSINOPHIL % 2.7 % (0.0-5.0); LYMPHOCYTES # 0.63 10^3/uL1 (1.0-4.8); LYMPHOCYTES % 18.9 % (24.0-44.0); MEAN CORP HGB 29.3 pg (26-34); MONOCYTES # 0.5 10^3/uL (0.3-0.8); MONOCYTES % 15.9 % (5.0-12.0); NEUTROPHIL # 2.1 10^3/uL (1.8-7.7); NEUTROPHILS % 61.9 % (41.0-85.0); PLATELET COUNT 243 10^3/uL (150-400); RED CELL DISTRIBUTION WIDTH 12.1 % (11.5-14.5)
[2021-01-12 05:26] LABS: CALCIUM 7.9 mg/dL (8.4-10.5); CARBON DIOXIDE 23.8 mmol/L (20.0-32)
[2021-01-12 05:49] LABS: LYMPHOCYTE 13 % (25-36); MONOCYTE 13 % (3-9); SEGMENTED NEUTROPHILS 74 % (31-76)
[2021-01-12 07:39] VITALS: BP 117/69
[2021-01-12] MEDS: ZINC SULFATE PO SCH (09:30)
[2021-01-12] MEDS: VITAMIN C PO SCH ×2 (09:30→21:36)
[2021-01-12] MEDS: PEPCID IV SCH ×2 (09:30→21:36)
[2021-01-12] MEDS: LOVENOX SQ SCH ×2 (09:30→21:37)
[2021-01-12 12:13] VITALS: BP 113/73
--- NOTE | 2021-01-12 14:59 | PRM.PN ---
Subjective Subjective Date: Jan 12, 2021 Time: 08:45 [address] Mr. Sawyer reports that his SoB has improved, speaking in complete sentences, cough has also improved VTE VTE Risk Total Score: 5 VTE Risk Score VTE Risk: Score 0-1 = Low Risk (Aggressive mobilization; early ambulation; no VTE prophylaxis required) Score 2: Moderate Risk (Intermittent/Pneumatic Compression Device OR Lovenox/Heparin/Coumadin) Score 3-4: High Risk (Intermittent/Pneumatic Compression Device AND Lovenox/Heparin/Coumadin) Score > or =5: Highest Risk (Intermittent/Pneumatic Compression Device AND Lovenox/Heparin/Coumadin) Antico:Hep/LMWH/Coum/Xarelto: Yes Mechanical device ordered: Yes Review of Systems Constitutional: No: Fever, Chills Eyes: No: Pain, Vision change, Conjunctivae inflammation, Eyelid inflammation, Other, Redness ENT: No: Ear pain, Ear discharge, Nose pain, Nose discharge, Nose congestion, Mouth pain, Mouth swelling, Throat pain, Throat swelling, Other Respiratory: Cough, SOB with excertion; No: Shortness of breath, Wheezing Cardiovascular: No: Chest Pain, Palpitations, Orthopnea, Paroxysmal Noc. Dyspnea, Edema, Lt Headedness, Other Gastrointestinal: No: Nausea, Vomiting, Abdominal Pain, Diarrhea, Constipation, Melena, Hematochezia, Other Genitourinary: No Dysuria, No Frequency, No Incontinence, No Hematuria, No Retention, No Other Musculoskeletal: No: other, neck pain, shoulder pain, arm pain, back pain, hand pain, leg pain, foot pain Skin: No: Rash, Lesions, Jaundice, Bruising, Other Neurological: No: Weakness, Numbness, Incoordination, Change in speech, Confusion, Seizures, Other Allergies: Coded Allergies: azithromycin (Verified Allergy, Unknown, 01/09/21) codeine (Verified Allergy, Unknown, 01/09/21) moxifloxacin (Verified Allergy, Unknown, 01/09/21) Objective Vitals and I/O Vital Sign - Last 24 Hours 01/12/21 01/12/21 01/12/21 01/12/21 07:39 09:10 10:35 12:13 Temp 98.7 98.2 Pulse 67 80 75 Resp 19 20 20 B/P (MAP) 117/69 (85) 113/73 (86) Pulse Ox 95 97 96 O2 Delivery Nasal Cannula Nasal Cannula O2 Flow Rate 3.50 2.00 Intake and Output 01/12/21 07:00 Intake Total 240 ml Balance 240 ml General: Alert, Oriented X3, Cooperative HEENT: Atraumatic, PERRLA, EOMI, Mucous membr. moist/pink Lungs: Clear to auscultation, Normal air movement Heart: Regular rate Abdomen: Normal bowel sounds Extremities: No clubbing, No cyanosis Neuro: Normal gait, Normal speech, Strength at 5/5 X4 ext, Normal tone Psych/Mental Status: Mood NL All Results(Lab/Rad) Current Medications Medications (Trade) Dose Ordered Sig/Cesar Route PRN Reason Start Time Stop Time Status Last Admin Dose Admin Enoxaparin Sodium (Lovenox) 40 mg BID SQ 01/09/21 09:00 02/08/21 08:59 01/10/21 08:58 Remdesivir 200 mg/ Sodium Chloride 140 ml @ 120.69 mls/ hr OT STAT IV 01/09/21 00:44 01/09/21 12:50 DC 01/09/21 00:44 Ceftriaxone Sodium 1000 mg/ Sodium Chloride 100 ml @ 100 mls/hr Q24HRS IV 01/09/21 01:00 02/08/21 00:59 01/10/21 01:13 Acetaminophen (Tylenol) 500 mg Q6H PRN PO PAIN 1 - 3 01/09/21 01:00 02/08/21 00:59 Ondansetron HCl (Zofran) 4 mg Q4H PRN IV NAUSEA / VOMITING 01/09/21 01:00 02/08/21 00:59 Melatonin (Melatonin) 3 mg HS PRN PO INSOMNIA 01/09/21 01:00 02/08/21 00:59 01/09/21 01:37 Famotidine (Pepcid) 20 mg BID IV 01/09/21 01:00 02/08/21 00:59 01/10/21 08:58 Zinc Sulfate (Zinc Sulfate) 220 mg DAILY PO 01/09/21 09:00 02/08/21 08:59 01/10/21 08:58 Ascorbic Acid (Vitamin C) 500 mg BID PO 01/09/21 09:00 02/08/21 08:59 01/10/21 08:57 Remdesivir 100 mg/ Sodium Chloride 120 ml @ 111.111 mls/hr Q24HRS IV 01/09/21 21:00 01/13/21 22:05 01/09/21 22:00 Benzonatate (Tessalon Perle) 100 mg TID PRN PO COUGH 01/09/21 01:00 02/08/21 00:59 01/09/21 01:37 Ceftriaxone Sodium (Rocephin) 1,000 mg STK-MED ONCE .ROUTE 01/09/21 01:05 01/09/21 01:06 DC Famotidine (Pepcid) 20 mg STK-MED ONCE .ROUTE 01/09/21 01:05 01/09/21 01:06 DC Sodium Chloride 100 ml @ ud STK-MED ONCE IV 01/09/21 01:06 01/09/21 01:06 DC Sodium Chloride 500 ml @ ud STK-MED ONCE IV 01/09/21 01:09 01/09/21 01:10 DC Sodium Chloride 250 ml @ ud STK-MED ONCE .ROUTE 01/09/21 22:56 01/09/21 22:56 DC Course Sepsis Screening Results: Posi: POSITIVE Sepsis Qualifier/Stage: SEPSIS RISK Vitals & review Data Vital Sign - Last 24 Hours 01/10/21 01/10/21 10:05 11:22 Temp 97.9 Pulse 79 Resp 16 B/P (MAP) 137/99 (112) Pulse Ox 92 O2 Delivery Nasal Canula Nasal Cannula O2 Flow Rate 3.50 3.50 Laboratory Tests Test 01/09/21 05:00 White Blood Count 4.4 10^3/uL Red Blood Count 5.11 10^6/uL Hemoglobin 14.9 g/dL Hematocrit 42.8 % Mean Corpuscular Volume 83.8 fL Mean Corpuscular Hemoglobin 29.2 pg Mean Corpuscular Hemoglobin Concent 34.8 g/dL Red Cell Distribution Width 12.0 % Platelet Count 188 10^3/uL Mean Platelet Volume 8.6 fL Neutrophils (%) (Auto) 81.9 % Lymphocytes (%) (Auto) 12.0 % Monocytes (%) (Auto) 5.4 % Neutrophils # (Auto) 3.6 10^3/uL Lymphocytes # (Auto) 0.53 10^3/uL1 Monocytes # (Auto) 0.2 10^3/uL Absolute Immature Granulocyte (auto 0.03 10^3 u/L Absolute Eosinophils (auto) 0.0 10^3/uL Immature Granulocytes % 0.70 % Eosinophils % 0.2 % Basophils % 0.5 % Basophils # 0.0 10^3/uL Prothrombin Time 11.6 SEC Prothrombin Time INR (Non-Therap) 1.1 Activated Partial Thromboplast Time 24.8 SEC D-Dimer 2.39 mg/L Sodium Level 138 mmol/L Potassium Level 3.7 mmol/L Chloride Level 100.0 mmol/L Carbon Dioxide Level 25.5 mmol/L Anion Gap 16.2 Blood Urea Nitrogen 14 mg/dL Creatinine 0.81 mg/dL Estimated GFR () 138.3 Est GFR (CKD-EPI)(Non-Afr Citizen Of [place]) 114.3 BUN/Creatinine Ratio 17.0 Glucose Level 99 mg/dL Calcium Level 7.7 mg/dL Total Bilirubin 0.8 mg/dL Aspartate Amino Transf (AST/SGOT) 186 U/L Alanine Aminotransferase (ALT/SGPT) 315 U/L Alkaline Phosphatase 42 U/L Total Protein 6.1 g/dL Albumin 3.0 g/dL Globulin 3.1 Albumin/Globulin Ratio 0.967 Procalcitonin 0.14 ng/mL Current Medications Medications (Trade) Dose Ordered Sig/Cesar PRN Reason Start Time Stop Time Status Last Admin Acetaminophen (Tylenol) 500 mg Q6H PRN PAIN 1 - 3 01/09/21 01:00 02/08/21 00:59 Ascorbic Acid (Vitamin C) 500 mg BID 01/09/21 09:00 02/08/21 08:59 01/10/21 08:57 Benzonatate (Tessalon Perle) 100 mg TID PRN COUGH 01/09/21 01:00 02/08/21 00:59 01/09/21 01:37 Ceftriaxone Sodium 1000 mg/ Sodium Chloride 100 ml @ 100 mls/hr Q24HRS 01/09/21 01:00 02/08/21 00:59 01/10/21 01:13 Enoxaparin Sodium (Lovenox) 40 mg BID 01/09/21 09:00 02/08/21 08:59 01/10/21 08:58 Famotidine (Pepcid) 20 mg BID 01/09/21 01:00 02/08/21 00:59 01/10/21 08:58 Melatonin (Melatonin) 3 mg HS PRN INSOMNIA 01/09/21 01:00 02/08/21 00:59 01/09/21 01:37 Ondansetron HCl (Zofran) 4 mg Q4H PRN NAUSEA / VOMITING 01/09/21 01:00 02/08/21 00:59 Remdesivir 100 mg/ Sodium Chloride 120 ml @ 111.111 mls/hr Q24HRS 01/09/21 21:00 01/13/21 22:05 01/09/21 22:00 Zinc Sulfate (Zinc Sulfate) 220 mg DAILY 01/09/21 09:00 02/08/21 08:59 01/10/21 08:58 LEVEL 1 SEPSIS INFECTION CRITE: ABX Therapy, Cough/Shortness of Breath, Flu- Pneumonia LEVEL 2-SIRS (LIST ALL THAT AP: None/Not assessed Cardiovascular Evidence: Not Assessed or None Hematologic Evidence: None/Not assessed Hepatic Evidence: Elevated AST(SGOT)>72, Elevated ALT(SGPT)>90 Metabolic Evidence: None/Not assessed Neurological Evidence: None/Not assessed Respiratory Evidence: Need for O2 to keep>90%, O2 SAT<90room air Renal Evidence: None/Not assessed O2 Sat by Pulse Oximetry: 96 Oxygen Flow Rate: 2.00 Assessment/Plan Assessment/Plan Problems: (1) Pneumonia due to COVID-19 virus Status: Acute Assessment & Plan: improving with remdesivir anticipate discharge home tomorrow on home O2 with ongoing improvement ICD Code: U07.1 - COVID-19; J12.82 - Pneumonia due to coronavirus disease 2018 SNOMED: [id number] (2) Acute hypoxemic respiratory failure due to COVID-19 Status: Acute Assessment & Plan: O2 requirement down to 2L today from 3.5 yesterday, setting up home O2, so anticipate DC tomorrow if O2 requirement falls or remains stable ICD Code: U07.1 - COVID-19; J96.01 - Acute respiratory failure with hypoxia SNOMED: 896856390 BOLIVAR FONTAINE MD Jan 12, 2021 14:59
[2021-01-12 15:53] VITALS: BP 119/78
[2021-01-12 21:35] VITALS: BP 116/72
[2021-01-12] MEDS: REMDESIVIR (EUA) 100 MG in NS 100ML 100 ML IV SCH (21:36)
[2021-01-13 00:22] VITALS: BP 118/72
[2021-01-13 04:10] VITALS: BP 103/64
[2021-01-13 04:44] LABS: BASOPHIL % 0.3 % (0.0-0.2); EOSINOPHIL # 0.1 10^3/uL (0.0-0.2); EOSINOPHIL % 2.1 % (0.0-5.0); LYMPHOCYTES # 0.66 10^3/uL1 (1.0-4.8); LYMPHOCYTES % 19.5 % (24.0-44.0); MEAN CORP HGB 29.7 pg (26-34); MONOCYTES # 0.5 10^3/uL (0.3-0.8); MONOCYTES % 14.5 % (5.0-12.0); NEUTROPHIL # 2.2 10^3/uL (1.8-7.7); NEUTROPHILS % 63.6 % (41.0-85.0); PLATELET COUNT 215 10^3/uL (150-400); RED CELL DISTRIBUTION WIDTH 12.2 % (11.5-14.5)
[2021-01-13 05:16] LABS: CARBON DIOXIDE 24.1 mmol/L (20.0-32)
[2021-01-13 05:17] LABS: CALCIUM 7.8 mg/dL (8.4-10.5)
[2021-01-13 07:50] VITALS: BP 116/52
[2021-01-13] MEDS: LOVENOX SQ SCH (10:03)
[2021-01-13] MEDS: PEPCID IV SCH (10:03)
[2021-01-13] MEDS: ZINC SULFATE PO SCH (10:04)
[2021-01-13] MEDS: VITAMIN C PO SCH (10:04)
[2021-01-13] MEDS ORDERED: ZINC220C7 PO (10:29)
[2021-01-13] MEDS ORDERED: ASCO500T5 PO (10:29)
--- NOTE | 2021-01-13 11:39 | PRM.DC ---
Discharge Summary Date of Discharge: Jan 13, 2021 Hospital Course 25-year-old male with no significant past medical history who has had coronavirus for approximately 12 days And was treated with a course of doxycycline outpatient and steroids however his oxygen saturations have worsened. Patient was admitted to hospital for further management. Patient was placed on supplemental oxygen. Started on remdesivir. Oxygen saturation improved to the low 90s on room air. Patient will be discharged home after last dose of remdesivir. Patient discharged stable condition. Patient to follow with primary care physician in 1 to 2 weeks. Diet is regular. Activity as tolerated. Exam/Vitals Blood pressure 160/50, heart rate 70, respiratory rate 14, temperature 98. General: Oriented X3 HEENT: Atraumatic, PERRLA Neck: Supple, No JVD Lungs: Other (Few scattered wheeze) Heart: Regular rate, Normal S1, Normal S2 Abdomen: Normal bowel sounds, Soft Extremities: No clubbing, No cyanosis Skin: No rashes, No significant lesion Neuro: Normal speech, Strength at 5/5 X4 ext Psych/Mental Status: Mental status NL, Mood NL Scheduled Ascorbic Acid (Ascorbic Acid), 500 MG PO BID Zinc Sulfate (Zinc Sulfate), 220 MG PO DAILY Sepsis Evaluation @ Discharge Vital Sign - Last 24 Hours 01/10/21 01/10/21 10:05 11:22 Temp 97.9 Pulse 79 Resp 16 B/P (MAP) 137/99 (112) Pulse Ox 92 O2 Delivery Nasal Canula Nasal Cannula O2 Flow Rate 3.50 3.50 Laboratory Tests Test 01/09/21 05:00 White Blood Count 4.4 10^3/uL Red Blood Count 5.11 10^6/uL Hemoglobin 14.9 g/dL Hematocrit 42.8 % Mean Corpuscular Volume 83.8 fL Mean Corpuscular Hemoglobin 29.2 pg Mean Corpuscular Hemoglobin Concent 34.8 g/dL Red Cell Distribution Width 12.0 % Platelet Count 188 10^3/uL Mean Platelet Volume 8.6 fL Neutrophils (%) (Auto) 81.9 % Lymphocytes (%) (Auto) 12.0 % Monocytes (%) (Auto) 5.4 % Neutrophils # (Auto) 3.6 10^3/uL Lymphocytes # (Auto) 0.53 10^3/uL1 Monocytes # (Auto) 0.2 10^3/uL Absolute Immature Granulocyte (auto 0.03 10^3 u/L Absolute Eosinophils (auto) 0.0 10^3/uL Immature Granulocytes % 0.70 % Eosinophils % 0.2 % Basophils % 0.5 % Basophils # 0.0 10^3/uL Prothrombin Time 11.6 SEC Prothrombin Time INR (Non-Therap) 1.1 Activated Partial Thromboplast Time 24.8 SEC D-Dimer 2.39 mg/L Sodium Level 138 mmol/L Potassium Level 3.7 mmol/L Chloride Level 100.0 mmol/L Carbon Dioxide Level 25.5 mmol/L Anion Gap 16.2 Blood Urea Nitrogen 14 mg/dL Creatinine 0.81 mg/dL Estimated GFR () 138.3 Est GFR (CKD-EPI)(Non-Afr [place] Citizen) 114.3 BUN/Creatinine Ratio 17.0 Glucose Level 99 mg/dL Calcium Level 7.7 mg/dL Total Bilirubin 0.8 mg/dL Aspartate Amino Transf (AST/SGOT) 186 U/L Alanine Aminotransferase (ALT/SGPT) 315 U/L Alkaline Phosphatase 42 U/L Total Protein 6.1 g/dL Albumin 3.0 g/dL Globulin 3.1 Albumin/Globulin Ratio 0.967 Procalcitonin 0.14 ng/mL Current Medications Medications (Trade) Dose Ordered Sig/Cesar PRN Reason Start Time Stop Time Status Last Admin Acetaminophen (Tylenol) 500 mg Q6H PRN PAIN 1 - 3 01/09/21 01:00 02/08/21 00:59 Ascorbic Acid (Vitamin C) 500 mg BID 01/09/21 09:00 02/08/21 08:59 01/10/21 08:57 Benzonatate (Tessalon Perle) 100 mg TID PRN COUGH 01/09/21 01:00 02/08/21 00:59 01/09/21 01:37 Ceftriaxone Sodium 1000 mg/ Sodium Chloride 100 ml @ 100 mls/hr Q24HRS 01/09/21 01:00 02/08/21 00:59 01/10/21 01:13 Enoxaparin Sodium (Lovenox) 40 mg BID 01/09/21 09:00 02/08/21 08:59 01/10/21 08:58 Famotidine (Pepcid) 20 mg BID 01/09/21 01:00 02/08/21 00:59 01/10/21 08:58 Melatonin (Melatonin) 3 mg HS PRN INSOMNIA 01/09/21 01:00 02/08/21 00:59 01/09/21 01:37 Ondansetron HCl (Zofran) 4 mg Q4H PRN NAUSEA / VOMITING 01/09/21 01:00 02/08/21 00:59 Remdesivir 100 mg/ Sodium Chloride 120 ml @ 111.111 mls/hr Q24HRS 01/09/21 21:00 01/13/21 22:05 01/09/21 22:00 Zinc Sulfate (Zinc Sulfate) 220 mg DAILY 01/09/21 09:00 02/08/21 08:59 01/10/21 08:58 Plan Problems: (1) Acute hypoxemic respiratory failure due to COVID-19 Status: Resolved ICD Code: U07.1 - COVID-19; J96.01 - Acute respiratory failure with hypoxia SNOMED: [id number] (2) Pneumonia due to COVID-19 virus Status: Acute ICD Code: U07.1 - COVID-19; J12.82 - Pneumonia due to coronavirus disease 2019 SNOMED: [id number] Discharge Date: Jan 13, 2021 Discharge Disposition: Stable Plan 25-year-old male with no significant past medical history who has had coronavirus for approximately 12 days And was treated with a course of doxycycline outpatient and steroids however his oxygen saturations have worsened. Patient was admitted to hospital for further management. Patient was placed on supplemental oxygen. Started on remdesivir. Oxygen saturation improved to the low 90s on room air. Patient will be discharged home after last dose of remdesivir. Patient discharged stable condition. Patient to follow with primary care physician in 1 to 2 weeks. Diet is regular. Activity as tolerated. SHON GORDILLO MD Jan 13, 2021 11:39
[2021-01-13 11:43] VITALS: BP 118/74
[2021-01-13 15:08] VITALS: BP 112/75
[2021-01-13] MEDS: REMDESIVIR (EUA) 100 MG in NS 100ML 100 ML IV SCH (15:57)
--- NOTE | 2021-01-13 16:17 | NUR ---
DC DC INSTRUCTIONS GIVEN. PT VOICED UNDERSTANDING AND SIGNED WRITTEN OF SAME.
--- NOTE | 2021-01-13 17:25 | NUR ---
DC IV DCD. TIP INTACT. DCD HOME IN STABLE CONDITION VIA W/C TO PRIVATE AUTO.
[2021-01-13 17:34] VITALS: BP 112/75
== END 2021-01-13 17:30 | disposition home or self-care (01) | DRG 177 ==
LOC: ICU 23:45 → MS 01-09 20:26
PROVIDERS: ADMIT Family Medicine; ATTEND Family Medicine
PROC: XW033E5 Introduction of Remdesivir Anti-infective into Peripheral Vein, Percutaneous Approach, New Technology Group 5 (ICD-10-PCS; principal; 2021-01-09)
DX: U07.1 COVID-19 (principal); J12.82 Pneumonia due to coronavirus disease 2019; J96.01 Acute respiratory failure with hypoxia; Z88.5 Allergy status to narcotic agent; Z88.1 Allergy status to other antibiotic agents; Z88.8 Allergy status to other drugs, medicaments and biological substances
CPT/HCPCS: 36415; 71045; 80053; 84145; 85025; 85379; 85610; 85730; G0378; J0696; J1650; J3490; J7040; J7050